=== PATIENT | female | born 1980 | race African-American/Black ===

== ENCOUNTER 2025-03-09 15:59 | Emergency (ER) | payer SELFPAY ==
[~2025-03-09] VITALS: Ht 170.2 cm; Wt 100.0 kg
[2025-03-09 16:08] VITALS: O2SAT 100
[2025-03-09 17:42] VITALS: BP 160/89; PULSE 75; RESP 18; TEMP 37.1; O2SAT 100
== END 2025-03-09 17:46 | disposition home or self-care (01) ==
LOC: ER 15:59
DX: M77.12 Lateral epicondylitis, left elbow (principal); I10 Essential (primary) hypertension; F41.9 Anxiety disorder, unspecified; Z79.899 Other long term (current) drug therapy
CPT/HCPCS: 81025; 99283